=== PATIENT | male | born 1940 | race Caucasian/White ===

== ENCOUNTER → 2024-04-05 | Day surgery (SDC) | payer MEDICARE ==
[2024-04-02 13:16] LABS: BASOPHILS # (AUTO) 0.1 (0.0-0.1); BASOPHILS % 1.3 % (0.0-1.0); EOSINOPHILS # (AUTO) 0.6 (0.0-0.4); EOSINOPHILS % 7.2 % (0.0-6.0); HEMATOCRIT 40.9 % (38.2-49.6); HEMOGLOBIN 13.2 g/dL (14.0-18.0); LYMPHOCYTES # (AUTO) 2.2 (1.0-3.2); LYMPHOCYTES % 25.8 % (18.0-39.1); MEAN CORPUSCULAR HEMOGLOBIN 32.3 pg (28-32); MEAN CORPUSCULAR HGB CONC 32.3 g/dL (31-35); MONOCYTES # (AUTO) 0.9 (0.2-0.8); MONOCYTES % 10.6 % (4.4-11.3); NEUTROPHILS # (AUTO) 4.6 (2.1-6.9); NEUTROPHILS % 54.7 % (38.7-80.0); PLATELET COUNT 169 x10e3/uL (140-360); RED BLOOD COUNT 4.09 x10e6/uL (4.3-5.7); RED CELL DISTRIBUTION WIDTH 12.6 % (11.7-14.4); WHITE BLOOD COUNT 8.46 x10e3/uL (4.8-10.8)
[2024-04-02 13:32] LABS: ANION GAP 16.3 mmol/L (8-16); CALCIUM 9.9 mg/dL (8.4-10.2); CREATININE, SERUM 1.27 mg/dL (0.72-1.25); POTASSIUM 4.3 mmol/L (3.5-5.1)
[~2024-04-05] MED LIST: ASPIR 8181 MG PO; CIPRO500 MG PO; FENTANYL CITRATE/PF 100MCG/2 ML INJ ONE; FINASTERIDE5 MG PO; FLOMAX0.4 MG PO; IOPAMIDOL 610MG/1ML 300 MG/ML VIAL IV ONE; LIPITOR20 MG PO; PHENAZOPYRIDINE HCL 100 MG TAB ONE; PRESERVISION A1 EAC4 PO; SAW PALMETTO 41 EACH PO; SUGAMMADEX SODIUM 200 MG/2 ML VIAL IV ONE; TYLENOL WITH C1 EACH PO; ZESTRIL10 MG PO
[2024-04-05] MEDS: GENTAMICIN 80MG/NS 100 ML 200 ML IV ONE (05:58)
[2024-04-05] MEDS: CEFTRIAXONE 1 GM VIAL ONE (05:59)
[2024-04-05] MEDS: SODIUM CHLORIDE 0.9% 1000ML 1,000 ML ONE (05:59)
[2024-04-05 07:40] VITALS: PULSE 69; RESP 18; O2SAT 96
[2024-04-05] MEDS: ALBUTEROL/IPRATROPIUM 3 ML NEB ONE (07:41)
[2024-04-05 08:16] VITALS: TEMP 97.2
[2024-04-05] MEDS: PHENAZOPYRIDINE HCL 100 MG TAB ONE (08:38)
[2024-04-05 09:20] VITALS: BP 148/96; PULSE 62; RESP 16; O2SAT 100
== END | disposition home or self-care (01) ==
LOC: OR 06:40
PROVIDERS: ATTEND Urology
DX: C67.9 Malignant neoplasm of bladder, unspecified (principal); N35.919 Unspecified urethral stricture, male, unspecified site; N40.1 Benign prostatic hyperplasia with lower urinary tract symptoms; N13.8 Other obstructive and reflux uropathy; R39.14 Feeling of incomplete bladder emptying; R39.12 Poor urinary stream; R35.1 Nocturia; N50.0 Atrophy of testis; N32.89 Other specified disorders of bladder; I12.9 Hypertensive chronic kidney disease with stage 1 through stage 4 chronic kidney disease, or unspecified chronic kidney disease; N18.9 Chronic kidney disease, unspecified; E78.5 Hyperlipidemia, unspecified; I49.9 Cardiac arrhythmia, unspecified; R05.9 Cough, unspecified; Z91.041 Radiographic dye allergy status; Z91.013 Allergy to seafood; Z01.810 Encounter for preprocedural cardiovascular examination; Z01.812 Encounter for preprocedural laboratory examination; Z01.818 Encounter for other preprocedural examination; Z79.82 Long term (current) use of aspirin; Z79.899 Other long term (current) drug therapy
CPT/HCPCS: 36415; 52005; 52235; 71046; 74420; 80048; 85025; 88305; 93005; 94640; 94799; C1758; J0696; J1580; J3010; J7030; Q9967; 88307

== ENCOUNTER 2024-05-24 10:30 | Inpatient (IN) | payer MEDICARE ==
[2024-05-20 13:24] LABS: BASOPHILS # (AUTO) 0.1 (0.0-0.1); BASOPHILS % 1.3 % (0.0-1.0); EOSINOPHILS # (AUTO) 0.7 (0.0-0.4); EOSINOPHILS % 9.7 % (0.0-6.0); HEMATOCRIT 39.1 % (38.2-49.6); HEMOGLOBIN 12.6 g/dL (14.0-18.0); LYMPHOCYTES # (AUTO) 2.1 (1.0-3.2); LYMPHOCYTES % 27.3 % (18.0-39.1); MEAN CORPUSCULAR HEMOGLOBIN 32.3 pg (28-32); MEAN CORPUSCULAR HGB CONC 32.2 g/dL (31-35); MEAN CORPUSCULAR VOLUME 100.3 fL (81-99); MONOCYTES # (AUTO) 0.7 (0.2-0.8); NEUTROPHILS % 52.4 % (38.7-80.0); PLATELET COUNT 150 x10e3/uL (140-360); WHITE BLOOD COUNT 7.66 x10e3/uL (4.8-10.8)
[2024-05-20 13:48] LABS: CALCIUM 9.5 mg/dL (8.4-10.2); CREATININE, SERUM 1.03 mg/dL (0.72-1.25)
[~2024-05-24] VITALS: Ht 182.9 cm; Wt 85.3 kg
[~2024-05-24 10:30] MED LIST changes: +AUGMENTIN125 MG/51 PO; +BROMPHENIR-PSE118 ML PO; -FENTANYL CITRATE/PF 100MCG/2 ML INJ ONE; -IOPAMIDOL 610MG/1ML 300 MG/ML VIAL IV ONE; +METOPROLOL SUCC25 MG PO; -PHENAZOPYRIDINE HCL 100 MG TAB ONE; -SUGAMMADEX SODIUM 200 MG/2 ML VIAL IV ONE
[2024-05-24] MEDS: SODIUM CHLORIDE 0.9% 1000ML 1,000 ML ONE (11:01)
[2024-05-24] MEDS: GENTAMICIN 80MG/NS 100 ML 200 ML IV ONE (11:01)
[2024-05-24] MEDS: CEFTRIAXONE 1 GM VIAL ONE (11:02)
[2024-05-24] MEDS ORDERED: REFRESH PLUS1 EACH PO (11:06)
[2024-05-24] MEDS: ALBUTEROL/IPRATROPIUM 3 ML NEB ONE (12:07)
[2024-05-24] MEDS ORDERED: ONDANSETRON HCL INJ 2MG/ML 2ML 2 MG/ML VIAL ONE (12:14)
[2024-05-24] MEDS ORDERED: PROPOFOL IV EMULSION 10 MG/ML 20 ML VIAL ONE (12:14)
[2024-05-24] MEDS ORDERED: ROCURONIUM BROMIDE 1 ML IV ONE (12:14)
[2024-05-24] MEDS ORDERED: FENTANYL CITRATE/PF 100MCG/2 ML INJ ONE (12:14)
[2024-05-24] MEDS ORDERED: LIDOCAINE HCL 2% LOCAL INJ 5 ML SDV VIAL INJ ONE (12:14)
[2024-05-24] MEDS ORDERED: GLYCOPYRROLATE INJ 0.2 MG/ML VIAL ONE (13:16)
[2024-05-24] MEDS ORDERED: LABETALOL HCL 20 ML ONE (13:19)
[2024-05-24] MEDS ORDERED: EPHEDRINE SULFATE INJ 50 MG/ML VIAL ONE (13:48)
[2024-05-24] MEDS ORDERED: ATROPINE SULFATE 1 MG/ML VIAL ONE (13:55)
[2024-05-24] MEDS ORDERED: FUROSEMIDE INJ 10 MG/ML 4 ML VIAL ONE (14:19)
[2024-05-24] MEDS: FENTANYL CITRATE/PF 100MCG/2 ML INJ ONE (15:05)
[2024-05-24] MEDS ORDERED: PHENAZOPYRIDINE HCL 100 MG TAB PO PRN (15:45)
[2024-05-24] MEDS ORDERED: ACETAMINOPHEN 1000 MG/100 ML IV PRN (15:45)
[2024-05-24] MEDS ORDERED: DIPHENHYDRAMINE HCL 25 MG CAP PO PRN (15:45)
[2024-05-24 16:01] LABS: BASOPHILS # (AUTO) 0.1 (0.0-0.1); BASOPHILS % 0.8 % (0.0-1.0); EOSINOPHILS # (AUTO) 0.4 (0.0-0.4); EOSINOPHILS % 3.5 % (0.0-6.0); HEMATOCRIT 39.7 % (38.2-49.6); HEMOGLOBIN 12.4 g/dL (14.0-18.0); LYMPHOCYTES % 16.6 % (18.0-39.1); MEAN CORPUSCULAR HEMOGLOBIN 32.3 pg (28-32); MEAN CORPUSCULAR HGB CONC 31.2 g/dL (31-35); MEAN CORPUSCULAR VOLUME 103.4 fL (81-99); MONOCYTES # (AUTO) 0.8 (0.2-0.8); MONOCYTES % 6.9 % (4.4-11.3); NEUTROPHILS # (AUTO) 8.6 (2.1-6.9); NEUTROPHILS % 71.9 % (38.7-80.0); PLATELET COUNT 161 x10e3/uL (140-360); RED BLOOD COUNT 3.84 x10e6/uL (4.3-5.7); RED CELL DISTRIBUTION WIDTH 13.3 % (11.7-14.4); WHITE BLOOD COUNT 11.96 x10e3/uL (4.8-10.8)
[2024-05-24] MEDS: ONDANSETRON HCL INJ 2MG/ML 2ML 2 MG/ML VIAL ONE (16:06)
[2024-05-24 16:36] VITALS: BP 145/81; PULSE 70; RESP 16; TEMP 98.3; O2SAT 100
[2024-05-24 16:38] LABS: ANION GAP 15.1 mmol/L (8-16); CALCIUM 7.7 mg/dL (8.4-10.2); CREATININE, SERUM 0.86 mg/dL (0.72-1.25); POTASSIUM 4.1 mmol/L (3.5-5.1)
[2024-05-24 16:46] VITALS: BP 145/81; PULSE 70; RESP 16; TEMP 98.3; O2SAT 100
[2024-05-24 16:51] VITALS: BP 145/81; PULSE 70; RESP 16; TEMP 98.3; O2SAT 100
[2024-05-24] MEDS ORDERED: SENNA-S TABLET PO SCH (17:00)
[2024-05-24] MEDS: SODIUM CHLORIDE 0.9% 1000ML 1,000 ML IV SCH (17:46)
[2024-05-24 20:00] VITALS: BP 136/78; PULSE 70; RESP 18; TEMP 98.6; O2SAT 99
[2024-05-24] MEDS: SENNA-S TABLET PO SCH (20:56)
[2024-05-24] MEDS: ACETAMINOPHEN/CODEINE 300MG - 30MG TAB PO PRN (21:15)
[2024-05-24 23:10] VITALS: PULSE 69; RESP 18; O2SAT 98
[2024-05-25] VITALS (8 sets, daily range): BP systolic 129–156; BP diastolic 73–83; PULSE 68–88; RESP 16–20; TEMP 98.2–99.2; O2SAT 93–100
[2024-05-25 05:15] LABS: BASOPHILS # (AUTO) 0.1 (0.0-0.1); BASOPHILS % 0.9 % (0.0-1.0); EOSINOPHILS % 0.4 % (0.0-6.0); LYMPHOCYTES # (AUTO) 1.5 (1.0-3.2); LYMPHOCYTES % 13.9 % (18.0-39.1); MEAN CORPUSCULAR HEMOGLOBIN 31.7 pg (28-32); MEAN CORPUSCULAR HGB CONC 32.4 g/dL (31-35); MONOCYTES # (AUTO) 1.2 (0.2-0.8); MONOCYTES % 11.5 % (4.4-11.3); NEUTROPHILS # (AUTO) 7.7 (2.1-6.9); NEUTROPHILS % 72.9 % (38.7-80.0); PLATELET COUNT 149 x10e3/uL (140-360); RED BLOOD COUNT 3.47 x10e6/uL (4.3-5.7); RED CELL DISTRIBUTION WIDTH 13.6 % (11.7-14.4); WHITE BLOOD COUNT 10.54 x10e3/uL (4.8-10.8)
[2024-05-25 05:46] LABS: ANION GAP 13.4 mmol/L (8-16); CALCIUM 7.5 mg/dL (8.4-10.2); CREATININE, SERUM 0.8 mg/dL (0.72-1.25); POTASSIUM 4.4 mmol/L (3.5-5.1)
[2024-05-25] MEDS ORDERED: ACETAMINOPHEN 325 MG TAB PO PRN (09:15)
[2024-05-25] MEDS ORDERED: CALCIUM GLUC 1 G/50 ML NACL 50 ML IV ONE (10:30)
[2024-05-25] MEDS ORDERED: BENZONATATE 100 MG CAP PO PRN (10:30)
[2024-05-25] MEDS: CALCIUM CARBONATE 500 MG CHEWABLE TABS PO SCH (11:16)
[2024-05-25] MEDS: MAGNESIUM SULFATE 2GM/50ML 50 ML IV ONE (11:16)
[2024-05-25] MEDS: CALCIUM GLUC 1 G/50 ML NACL 50 ML IV ONE (11:53)
[2024-05-25] MEDS: ALBUTEROL/IPRATROPIUM 3 ML NEB NEB SCH (14:13)
[2024-05-25] MEDS: BENZONATATE 100 MG CAP PO SCH (14:26)
[2024-05-25] MEDS: ARTIFICIAL TEARS (OPTH) 15 ML BTL OU SCH (14:31)
[2024-05-25] MEDS: ATORVASTATIN 20 MG TAB PO SCH (20:39)
[2024-05-26] VITALS (8 sets, daily range): BP systolic 118–151; BP diastolic 62–79; PULSE 67–100; RESP 18; TEMP 98.4–98.9; O2SAT 94–98
[2024-05-26 05:10] LABS: BASOPHILS # (AUTO) 0.1 (0.0-0.1); BASOPHILS % 0.8 % (0.0-1.0); EOSINOPHILS # (AUTO) 0.5 (0.0-0.4); EOSINOPHILS % 5.4 % (0.0-6.0); HEMATOCRIT 33.9 % (38.2-49.6); HEMOGLOBIN 11.1 g/dL (14.0-18.0); LYMPHOCYTES # (AUTO) 1.7 (1.0-3.2); LYMPHOCYTES % 17.9 % (18.0-39.1); MEAN CORPUSCULAR HEMOGLOBIN 31.6 pg (28-32); MEAN CORPUSCULAR HGB CONC 32.7 g/dL (31-35); MEAN CORPUSCULAR VOLUME 96.6 fL (81-99); MONOCYTES % 10.6 % (4.4-11.3); NEUTROPHILS # (AUTO) 6.2 (2.1-6.9); NEUTROPHILS % 64.9 % (38.7-80.0); PLATELET COUNT 142 x10e3/uL (140-360); RED BLOOD COUNT 3.51 x10e6/uL (4.3-5.7); RED CELL DISTRIBUTION WIDTH 13.2 % (11.7-14.4); WHITE BLOOD COUNT 9.52 x10e3/uL (4.8-10.8)
[2024-05-26 05:37] LABS: ANION GAP 11.8 mmol/L (8-16); CALCIUM 8.3 mg/dL (8.4-10.2); CREATININE, SERUM 0.79 mg/dL (0.72-1.25); POTASSIUM 3.8 mmol/L (3.5-5.1)
[2024-05-26] MEDS: METOPROLOL SUCCINATE 25 MG TAB XL PO SCH (08:41)
[2024-05-26] MEDS: FINASTERIDE 5 MG TAB PO SCH (08:41)
[2024-05-26] MEDS: FUROSEMIDE INJ 10 MG/ML 4 ML VIAL IV ONE (08:41)
[2024-05-26] MEDS: TAMSULOSIN HCL 0.4 MG CAP PO SCH (08:42)
[2024-05-26] MEDS: ALBUTEROL/IPRATROPIUM 3 ML NEB NEB PRN (10:58)
[2024-05-27] VITALS (11 sets, daily range): BP systolic 109–164; BP diastolic 72–83; PULSE 66–88; RESP 17–20; TEMP 97.5–99.4; O2SAT 92–97
[2024-05-27 05:09] LABS: BASOPHILS # (AUTO) 0.1 (0.0-0.1); BASOPHILS % 0.5 % (0.0-1.0); EOSINOPHILS # (AUTO) 0.9 (0.0-0.4); EOSINOPHILS % 8.5 % (0.0-6.0); HEMATOCRIT 33.3 % (38.2-49.6); HEMOGLOBIN 11.1 g/dL (14.0-18.0); LYMPHOCYTES % 17.9 % (18.0-39.1); MEAN CORPUSCULAR HEMOGLOBIN 32.4 pg (28-32); MEAN CORPUSCULAR HGB CONC 33.3 g/dL (31-35); MEAN CORPUSCULAR VOLUME 97.1 fL (81-99); MONOCYTES # (AUTO) 1.1 (0.2-0.8); MONOCYTES % 10.1 % (4.4-11.3); NEUTROPHILS # (AUTO) 6.9 (2.1-6.9); NEUTROPHILS % 62.5 % (38.7-80.0); PLATELET COUNT 144 x10e3/uL (140-360); RED BLOOD COUNT 3.43 x10e6/uL (4.3-5.7); RED CELL DISTRIBUTION WIDTH 12.8 % (11.7-14.4); WHITE BLOOD COUNT 11.09 x10e3/uL (4.8-10.8)
[2024-05-27 05:27] LABS: ANION GAP 12.6 mmol/L (8-16); CALCIUM 8.7 mg/dL (8.4-10.2); CREATININE, SERUM 0.85 mg/dL (0.72-1.25); POTASSIUM 3.6 mmol/L (3.5-5.1)
[2024-05-27] MEDS: PANTOPRAZOLE SOD 40 MG TABEC PO SCH (08:55)
[2024-05-27] MEDS: DIPHENHYDRAMINE HCL INJ 50 MG/ML VIAL IV ONE (14:16)
[2024-05-27] MEDS ORDERED: IOPAMIDOL 370 MG/ML 100 ML INFUS..BTL INJ ONE (15:51)
[2024-05-27] MEDS ORDERED: SODIUM CHLORIDE 0.9% 500ML 500 ML ONE (15:52)
[2024-05-28] VITALS (9 sets, daily range): BP systolic 123–164; BP diastolic 68–87; PULSE 54–92; RESP 17–18; TEMP 97.8–99; O2SAT 93–97
[2024-05-28 05:35] LABS: BASOPHILS # (AUTO) 0.1 (0.0-0.1); BASOPHILS % 0.6 % (0.0-1.0); EOSINOPHILS # (AUTO) 1.1 (0.0-0.4); EOSINOPHILS % 11.1 % (0.0-6.0); HEMATOCRIT 30.2 % (38.2-49.6); HEMOGLOBIN 10.3 g/dL (14.0-18.0); LYMPHOCYTES # (AUTO) 1.9 (1.0-3.2); LYMPHOCYTES % 19.3 % (18.0-39.1); MEAN CORPUSCULAR HEMOGLOBIN 31.9 pg (28-32); MEAN CORPUSCULAR HGB CONC 34.1 g/dL (31-35); MEAN CORPUSCULAR VOLUME 93.5 fL (81-99); MONOCYTES # (AUTO) 0.9 (0.2-0.8); MONOCYTES % 9.6 % (4.4-11.3); NEUTROPHILS # (AUTO) 5.8 (2.1-6.9); PLATELET COUNT 150 x10e3/uL (140-360); RED BLOOD COUNT 3.23 x10e6/uL (4.3-5.7); RED CELL DISTRIBUTION WIDTH 12.8 % (11.7-14.4); WHITE BLOOD COUNT 9.78 x10e3/uL (4.8-10.8)
[2024-05-28 05:56] LABS: ANION GAP 12.4 mmol/L (8-16); CALCIUM 8.7 mg/dL (8.4-10.2); CREATININE, SERUM 0.87 mg/dL (0.72-1.25)
[2024-05-28 06:03] LABS: POTASSIUM 3.4 mmol/L (3.5-5.1)
[2024-05-28] MEDS ORDERED: LOSARTAN POTASS25 MG PO (09:39)
[2024-05-29] VITALS (7 sets, daily range): BP systolic 125–158; BP diastolic 76–86; PULSE 75–83; RESP 16–21; TEMP 97.4–99.1; O2SAT 93–99
[2024-05-29] MEDS: ONDANSETRON HCL INJ 2MG/ML 2ML 2 MG/ML VIAL IV PRN (07:29)
[2024-05-29] MEDS: CHOLESTYRAMINE 4 GM PACKET PO PRN (13:21)
[2024-05-30 00:24] VITALS: BP 122/68; PULSE 81; RESP 18; TEMP 98.4; O2SAT 94
[2024-05-30 04:00] VITALS: BP 143/91; PULSE 86; RESP 18; TEMP 97.6; O2SAT 94
[2024-05-30 08:28] VITALS: BP 143/91; PULSE 86; RESP 18; TEMP 97.6; O2SAT 94
[2024-05-30 08:36] VITALS: BP 138/85; PULSE 88; RESP 18; TEMP 97.6; O2SAT 94
[2024-05-30 08:40] VITALS: BP 138/85; PULSE 88
[2024-05-30] MEDS ORDERED: BACTRIM 400-801 EACH PO (10:38)
[2024-05-30] MEDS ORDERED: TESSALON PEARLS PO (10:40)
[2024-05-30] MEDS ORDERED: ZYRTEC10 M3 PO (10:41)
[2024-05-30] MEDS ORDERED: PANTOPRAZOLE SO40 MG PO (10:41)
[2024-05-30] MEDS ORDERED: KLOR-CON 1010 MEQ PO (10:42)
[2024-05-30] MEDS ORDERED: LASIX20 MG PO (10:42)
== END 2024-05-30 11:20 | disposition home or self-care (01) | DRG 713 ==
LOC: OR 10:30 → PACU V 15:09 → OBSVTOIN 15:31 → MED/SURG 16:44
PROVIDERS: ADMIT Internal Medicine; ATTEND Internal Medicine
PROC: BT141ZZ Fluoroscopy of Kidneys, Ureters and Bladder using Low Osmolar Contrast (ICD-10-PCS; 2024-05-24)
PROC: 0VB08ZZ Excision of Prostate, Via Natural or Artificial Opening Endoscopic (ICD-10-PCS; principal; 2024-05-24 12:45)
PROC: 0T7D8ZZ Dilation of Urethra, Via Natural or Artificial Opening Endoscopic (ICD-10-PCS; 2024-05-24 12:45)
DX: N40.1 Benign prostatic hyperplasia with lower urinary tract symptoms (principal); J90 Pleural effusion, not elsewhere classified; N13.8 Other obstructive and reflux uropathy; S37.29XA Other injury of bladder, initial encounter; D63.8 Anemia in other chronic diseases classified elsewhere; N41.9 Inflammatory disease of prostate, unspecified; I10 Essential (primary) hypertension; E78.5 Hyperlipidemia, unspecified; N32.81 Overactive bladder; R39.14 Feeling of incomplete bladder emptying; R05.3 Chronic cough; K21.9 Gastro-esophageal reflux disease without esophagitis; N35.919 Unspecified urethral stricture, male, unspecified site; R31.9 Hematuria, unspecified; N28.1 Cyst of kidney, acquired; Z85.51 Personal history of malignant neoplasm of bladder; Z87.440 Personal history of urinary (tract) infections; X58.XXXA Exposure to other specified factors, initial encounter; E66.9 Obesity, unspecified; Z68.25 Body mass index [BMI] 25.0-25.9, adult
CPT/HCPCS: 36415; 71250; 72194; 74176; 74420; 80048; 83735; 85025; 88305; 94640; 94799; 99252; C1758; J0461; J0696; J1200; J1580; J1940; J2003; J2405; J2470; J3475; J7030; J7040; Q9967

== ENCOUNTER 2024-06-16 13:01 | Inpatient (IN) | payer MEDICARE ==
[~2024-06-16] VITALS: Ht 182.9 cm; Wt 85.3 kg
[~2024-06-16 13:01] MED LIST changes: +BACTRIM 400-801 EACH PO; +KLOR-CON 1010 MEQ PO; +LASIX20 MG PO; +LOSARTAN POTASS25 MG PO; +PANTOPRAZOLE SO40 MG PO; +REFRESH PLUS1 EACH PO; +TESSALON PEARLS PO; +ZYRTEC10 M3 PO
[2024-06-16] MEDS ORDERED: SODIUM CHLORIDE 0.9% 1000ML 1,000 ML ONE (14:10)
[2024-06-16] MEDS: ACETAMINOPHEN 325 MG TAB PO ONE (14:14)
[2024-06-16 14:15] LABS: BASOPHILS % 0.3 % (0.0-1.0); EOSINOPHILS % 0.2 % (0.0-6.0); HEMATOCRIT 35.8 % (38.2-49.6); HEMOGLOBIN 11.3 g/dL (14.0-18.0); LYMPHOCYTES # (AUTO) 1.6 (1.0-3.2); LYMPHOCYTES % 12.8 % (18.0-39.1); MEAN CORPUSCULAR HEMOGLOBIN 32.1 pg (28-32); MEAN CORPUSCULAR HGB CONC 31.6 g/dL (31-35); MEAN CORPUSCULAR VOLUME 101.7 fL (81-99); MONOCYTES # (AUTO) 1.7 (0.2-0.8); MONOCYTES % 13.5 % (4.4-11.3); NEUTROPHILS % 72.7 % (38.7-80.0); PLATELET COUNT 202 x10e3/uL (140-360); RED BLOOD COUNT 3.52 x10e6/uL (4.3-5.7); RED CELL DISTRIBUTION WIDTH 12.9 % (11.7-14.4); WHITE BLOOD COUNT 12.38 x10e3/uL (4.8-10.8)
[2024-06-16] MEDS: SODIUM CHLORIDE 0.9% 1000ML 1,000 ML IV STA (14:18)
[2024-06-16 14:36] LABS: ALBUMIN/GLOBULIN RATIO 0.8 (0.8-2.0); ANION GAP 13.4 mmol/L (8-16); BILIRUBIN,TOTAL 1.2 mg/dL (0.2-1.2); CALCIUM 9.2 mg/dL (8.4-10.2); CREATININE, SERUM 1.1 mg/dL (0.72-1.25); MAGNESIUM 1.7 MG/DL (1.3-2.1); POTASSIUM 4.4 mmol/L (3.5-5.1); TOTAL PROTEIN 6.9 g/dL (6.5-8.1)
[2024-06-16 14:37] LABS: INR 1.07; PROTHROMBIN TIME 14.6 seconds (11.9-14.5)
[2024-06-16 14:38] LABS: CORONAVIRUS COVID-19 AG NEGATIVE (NEGATIVE); INFLUENZA A AG NEGATIVE (NEGATIVE); INFLUENZA B AG NEGATIVE (NEGATIVE); PARTIAL THROMBOPLASTIN TIME 29.2 seconds (23.8-35.5)
[2024-06-16 14:44] LABS: TROPONIN I 0.026 ng/mL (0-0.300)
[2024-06-16 14:47] LABS: BILIRUBIN,URINE NEGATIVE (NEGATIVE); CLARITY,URINE CLOUDY (CLEAR); COLOR,URINE YELLOW (YELLOW); GLUCOSE, URINE NEGATIVE (NEGATIVE); KETONES,URINE NEGATIVE (NEGATIVE); LEUKOCYTE ESTERASE ,URINE LARGE (NEGATIVE); NITRITE,URINE POSITIVE (NEGATIVE); PH,URINE 6.5 (5 - 7); PROTEIN,URINE DIPSTICK 2+ (NEGATIVE); URINE UROBILINOGEN 0.2 mg/dL (0.2 - 1)
[2024-06-16 14:56] LABS: BACTERIA,URINE MODERATE /HPF; WBC,URINE (MAN) >50 /HPF (0-5)
[2024-06-16 15:29] VITALS: PULSE 82; RESP 16; TEMP 99.8
[2024-06-16] MEDS: Vancomycin IV 1 GM in SODIUM CHLORIDE 0.9% 250ML 250 ML IV ONE (15:42)
[2024-06-16] MEDS ORDERED: ACETAMINOPHEN 325 MG TAB PO PRN (16:00)
[2024-06-16] MEDS ORDERED: ONDANSETRON HCL INJ 2MG/ML 2ML 2 MG/ML VIAL IV PRN (16:00)
[2024-06-16] MEDS ORDERED: IBUPROFEN 600 MG TAB PO PRN (16:00)
[2024-06-16] MEDS: SODIUM CHLORIDE 0.9% 1000ML 1,000 ML IV SCH (16:49)
[2024-06-16] MEDS: MEROPENEM 1 GM in SODIUM CHLORIDE 0.9% 100 ML IV SCH (17:47)
[2024-06-16] MEDS ORDERED: CEFUROXIME250 MG PO (17:53)
[2024-06-16 18:23] VITALS: BP 117/84; PULSE 80; RESP 16; TEMP 99.4; O2SAT 98
[2024-06-16 18:29] VITALS: BP 117/84; PULSE 80; RESP 16; TEMP 99.4; O2SAT 98
[2024-06-16 21:34] VITALS: BP 135/85; PULSE 101; RESP 20; TEMP 99; O2SAT 96
[2024-06-17] VITALS (9 sets, daily range): BP systolic 116–141; BP diastolic 61–85; PULSE 74–88; RESP 16–20; TEMP 98.1–99.9; O2SAT 93–99
[2024-06-17 06:27] LABS: BASOPHILS % 0.2 % (0.0-1.0); EOSINOPHILS # (AUTO) 0.1 (0.0-0.4); EOSINOPHILS % 0.7 % (0.0-6.0); HEMATOCRIT 30.3 % (38.2-49.6); LYMPHOCYTES # (AUTO) 1.5 (1.0-3.2); LYMPHOCYTES % 15.1 % (18.0-39.1); MEAN CORPUSCULAR HEMOGLOBIN 31.5 pg (28-32); MEAN CORPUSCULAR VOLUME 95.6 fL (81-99); MONOCYTES # (AUTO) 1.4 (0.2-0.8); MONOCYTES % 13.6 % (4.4-11.3); NEUTROPHILS % 69.9 % (38.7-80.0); PLATELET COUNT 174 x10e3/uL (140-360); RED BLOOD COUNT 3.17 x10e6/uL (4.3-5.7); RED CELL DISTRIBUTION WIDTH 12.7 % (11.7-14.4); WHITE BLOOD COUNT 10.01 x10e3/uL (4.8-10.8)
[2024-06-17 06:52] LABS: ALBUMIN 2.4 g/dL (3.5-5.0); ALBUMIN/GLOBULIN RATIO 0.7 (0.8-2.0); ANION GAP 11.1 mmol/L (8-16); BILIRUBIN,TOTAL 0.8 mg/dL (0.2-1.2); CALCIUM 8.5 mg/dL (8.4-10.2); CREATININE, SERUM 0.99 mg/dL (0.72-1.25); POTASSIUM 4.1 mmol/L (3.5-5.1); TOTAL PROTEIN 5.7 g/dL (6.5-8.1)
[2024-06-17] MEDS ORDERED: BENZONATATE 100 MG CAP PO PRN (10:00)
[2024-06-17] MEDS: BENZONATATE 100 MG CAP PO SCH (11:00)
[2024-06-17] MEDS: PANTOPRAZOLE SOD 40 MG TABEC PO SCH (11:29)
[2024-06-17] MEDS: LOSARTAN POTASSIUM 25 MG TAB PO SCH (11:31)
[2024-06-17] MEDS: FINASTERIDE 5 MG TAB PO SCH (11:31)
[2024-06-17] MEDS: METOPROLOL SUCCINATE 25 MG TAB XL PO SCH (11:31)
[2024-06-17] MEDS: TAMSULOSIN HCL 0.4 MG CAP PO SCH (16:12)
[2024-06-17] MEDS: ATORVASTATIN 20 MG TAB PO SCH (21:17)
[2024-06-18] VITALS (10 sets, daily range): BP systolic 109–140; BP diastolic 73–86; PULSE 67–86; RESP 16–20; TEMP 98.2–99.2; O2SAT 96–98
[2024-06-18 05:47] LABS: BASOPHILS # (AUTO) 0.1 (0.0-0.1); BASOPHILS % 0.6 % (0.0-1.0); EOSINOPHILS # (AUTO) 0.3 (0.0-0.4); EOSINOPHILS % 3.4 % (0.0-6.0); HEMATOCRIT 32.5 % (38.2-49.6); HEMOGLOBIN 10.2 g/dL (14.0-18.0); LYMPHOCYTES # (AUTO) 1.4 (1.0-3.2); MEAN CORPUSCULAR HEMOGLOBIN 31.6 pg (28-32); MEAN CORPUSCULAR HGB CONC 31.4 g/dL (31-35); MEAN CORPUSCULAR VOLUME 100.6 fL (81-99); MONOCYTES # (AUTO) 1.2 (0.2-0.8); NEUTROPHILS # (AUTO) 5.2 (2.1-6.9); NEUTROPHILS % 63.5 % (38.7-80.0); PLATELET COUNT 172 x10e3/uL (140-360); RED BLOOD COUNT 3.23 x10e6/uL (4.3-5.7); RED CELL DISTRIBUTION WIDTH 12.8 % (11.7-14.4); WHITE BLOOD COUNT 8.16 x10e3/uL (4.8-10.8)
[2024-06-18 06:11] LABS: ANION GAP 13.1 mmol/L (8-16); CALCIUM 8.5 mg/dL (8.4-10.2); CREATININE, SERUM 0.89 mg/dL (0.72-1.25); POTASSIUM 4.1 mmol/L (3.5-5.1)
[2024-06-19] VITALS (9 sets, daily range): BP systolic 98–136; BP diastolic 63–90; PULSE 57–78; RESP 17–18; TEMP 98.1–98.6; O2SAT 93–98
[2024-06-20] VITALS (11 sets, daily range): BP systolic 114–165; BP diastolic 74–87; PULSE 62–78; RESP 17–20; TEMP 97.1–98.8; O2SAT 96–100
[2024-06-20 05:52] LABS: BASOPHILS % 0.5 % (0.0-1.0); EOSINOPHILS # (AUTO) 0.6 (0.0-0.4); EOSINOPHILS % 7.4 % (0.0-6.0); HEMATOCRIT 32.9 % (38.2-49.6); HEMOGLOBIN 11.1 g/dL (14.0-18.0); LYMPHOCYTES % 26.7 % (18.0-39.1); MEAN CORPUSCULAR HEMOGLOBIN 32.5 pg (28-32); MEAN CORPUSCULAR HGB CONC 33.7 g/dL (31-35); MEAN CORPUSCULAR VOLUME 96.2 fL (81-99); MONOCYTES # (AUTO) 0.9 (0.2-0.8); MONOCYTES % 12.4 % (4.4-11.3); NEUTROPHILS # (AUTO) 3.9 (2.1-6.9); NEUTROPHILS % 52.5 % (38.7-80.0); PLATELET COUNT 208 x10e3/uL (140-360); RED BLOOD COUNT 3.42 x10e6/uL (4.3-5.7); RED CELL DISTRIBUTION WIDTH 12.8 % (11.7-14.4); WHITE BLOOD COUNT 7.42 x10e3/uL (4.8-10.8)
[2024-06-20 06:13] LABS: ANION GAP 13.9 mmol/L (8-16); CALCIUM 8.9 mg/dL (8.4-10.2); CREATININE, SERUM 0.86 mg/dL (0.72-1.25); POTASSIUM 3.9 mmol/L (3.5-5.1)
[2024-06-21 00:45] VITALS: BP 105/64; PULSE 64; RESP 17; TEMP 98.4; O2SAT 97
[2024-06-21 04:42] VITALS: BP 117/79; PULSE 61; RESP 16; TEMP 97.6; O2SAT 100
[2024-06-21 07:55] VITALS: PULSE 87; RESP 18; O2SAT 95
[2024-06-21 08:12] VITALS: BP 132/90; PULSE 72; RESP 18; TEMP 97.9; O2SAT 97
[2024-06-21 08:23] VITALS: BP 132/90; PULSE 72; RESP 18; TEMP 97.9; O2SAT 97
[2024-06-21 09:52] VITALS: BP 132/90; PULSE 72
== END 2024-06-21 10:40 | disposition home or self-care (01) | DRG 699 ==
LOC: ER 13:12 → ERHOLD 16:03 → MED/SURG3 17:10
PROVIDERS: ADMIT Internal Medicine; ATTEND Internal Medicine
DX: T83.511A Infection and inflammatory reaction due to indwelling urethral catheter, initial encounter (principal); D68.9 Coagulation defect, unspecified; Z16.12 Extended spectrum beta lactamase (ESBL) resistance; Z16.24 Resistance to multiple antibiotics; N39.0 Urinary tract infection, site not specified; E78.5 Hyperlipidemia, unspecified; I10 Essential (primary) hypertension; B96.1 Klebsiella pneumoniae [K. pneumoniae] as the cause of diseases classified elsewhere; C67.9 Malignant neoplasm of bladder, unspecified; D64.9 Anemia, unspecified; R53.81 Other malaise; R31.9 Hematuria, unspecified; Y84.6 Urinary catheterization as the cause of abnormal reaction of the patient, or of later complication, without mention of misadventure at the time of the procedure; Z11.52 Encounter for screening for COVID-19; Z90.79 Acquired absence of other genital organ(s); Z85.828 Personal history of other malignant neoplasm of skin; Z91.041 Radiographic dye allergy status; Z91.013 Allergy to seafood; Z87.891 Personal history of nicotine dependence
CPT/HCPCS: 36415; 71045; 80048; 80053; 81001; 82550; 83605; 83735; 84484; 85025; 85610; 85730; 87040; 87086; 87186; 94799; 99284; J2185; J7030; J7050

== ENCOUNTER → 2024-07-01 | Outpatient (REF) | payer MEDICARE ==
[~2024-07-01] MED LIST changes: +CEFUROXIME250 MG PO; +IOPAMIDOL 370 MG/ML 100 ML INFUS..BTL INJ ONE; +SODIUM CHLORIDE 0.9% 500ML 500 ML ONE
== END ==
LOC: CT 10:40
PROVIDERS: ATTEND Urology
DX: N40.1 Benign prostatic hyperplasia with lower urinary tract symptoms (principal); R39.14 Feeling of incomplete bladder emptying; R39.12 Poor urinary stream; N35.919 Unspecified urethral stricture, male, unspecified site
CPT/HCPCS: 72194; J7040; Q9967

== ENCOUNTER 2024-08-23 09:05 | Inpatient (IN) | payer MEDICARE ==
[~2024-08-23] VITALS: Ht 182.9 cm; Wt 90.7 kg
[~2024-08-23 09:05] MED LIST changes: -IOPAMIDOL 370 MG/ML 100 ML INFUS..BTL INJ ONE; -SODIUM CHLORIDE 0.9% 500ML 500 ML ONE
[2024-08-23 09:20] VITALS: TEMP 98.4
[2024-08-23 10:16] VITALS: PULSE 61; RESP 16
[2024-08-23 10:24] LABS: BASOPHILS # (AUTO) 0.1 (0.0-0.1); BASOPHILS % 0.9 % (0.0-1.0); EOSINOPHILS # (AUTO) 0.6 (0.0-0.4); EOSINOPHILS % 7.4 % (0.0-6.0); HEMATOCRIT 37.7 % (38.2-49.6); HEMOGLOBIN 12.3 g/dL (14.0-18.0); LYMPHOCYTES # (AUTO) 1.1 (1.0-3.2); LYMPHOCYTES % 14.6 % (18.0-39.1); MEAN CORPUSCULAR HEMOGLOBIN 31.6 pg (28-32); MEAN CORPUSCULAR HGB CONC 32.6 g/dL (31-35); MEAN CORPUSCULAR VOLUME 96.9 fL (81-99); MONOCYTES # (AUTO) 0.9 (0.2-0.8); MONOCYTES % 11.8 % (4.4-11.3); NEUTROPHILS # (AUTO) 4.9 (2.1-6.9); NEUTROPHILS % 64.9 % (38.7-80.0); PLATELET COUNT 167 x10e3/uL (140-360); RED BLOOD COUNT 3.89 x10e6/uL (4.3-5.7); RED CELL DISTRIBUTION WIDTH 13.4 % (11.7-14.4); WHITE BLOOD COUNT 7.48 x10e3/uL (4.8-10.8)
[2024-08-23 10:36] LABS: INR 1.06; PROTHROMBIN TIME 14.4 seconds (11.9-14.5)
[2024-08-23 10:37] LABS: PARTIAL THROMBOPLASTIN TIME 29.9 seconds (23.8-35.5)
[2024-08-23 10:45] LABS: ALBUMIN 3.4 g/dL (3.5-5.0); ALBUMIN/GLOBULIN RATIO 0.9 (0.8-2.0); ANION GAP 13.1 mmol/L (8-16); BILIRUBIN,TOTAL 0.8 mg/dL (0.2-1.2); CALCIUM 9.4 mg/dL (8.4-10.2); CREATININE, SERUM 1.13 mg/dL (0.72-1.25); POTASSIUM 4.1 mmol/L (3.5-5.1); TOTAL PROTEIN 7.1 g/dL (6.5-8.1)
[2024-08-23 10:49] LABS: BILIRUBIN,URINE NEGATIVE (NEGATIVE); CLARITY,URINE CLEAR (CLEAR); COLOR,URINE YELLOW (YELLOW); GLUCOSE, URINE NEGATIVE (NEGATIVE); KETONES,URINE NEGATIVE (NEGATIVE); LEUKOCYTE ESTERASE ,URINE TRACE (NEGATIVE); NITRITE,URINE NEGATIVE (NEGATIVE); PH,URINE 5.5 (5 - 7); PROTEIN,URINE DIPSTICK NEGATIVE (NEGATIVE); URINE UROBILINOGEN 0.2 mg/dL (0.2 - 1)
[2024-08-23 11:10] LABS: BACTERIA,URINE FEW /HPF; EPITHELIAL CELLS,URINE RARE /LPF; RBC,URINE 0-5 /HPF (0-5); TRANSITIONAL EPI CELLS,URINE RARE; WBC,URINE (MAN) >50 /HPF (0-5)
[2024-08-23] MEDS ORDERED: SODIUM CHLORIDE FLUSH 10 ML SYR INJ PRN (12:15)
[2024-08-23] MEDS ORDERED: ONDANSETRON HCL INJ 2MG/ML 2ML 2 MG/ML VIAL IV PRN (12:15)
[2024-08-23] MEDS ORDERED: LISINOPRIL2.5 MG PO (15:03)
[2024-08-23 15:10] VITALS: BP 146/82; PULSE 82; RESP 18; TEMP 97.9; O2SAT 98
[2024-08-23 20:00] VITALS: BP 138/81; PULSE 77; RESP 20; TEMP 98.5; O2SAT 100
[2024-08-24] VITALS (9 sets, daily range): BP systolic 92–125; BP diastolic 61–87; PULSE 64–87; RESP 17–20; TEMP 98–99; O2SAT 93–98
[2024-08-24 06:40] LABS: BASOPHILS # (AUTO) 0.1 (0.0-0.1); BASOPHILS % 0.7 % (0.0-1.0); EOSINOPHILS # (AUTO) 0.7 (0.0-0.4); EOSINOPHILS % 8.8 % (0.0-6.0); HEMATOCRIT 34.3 % (38.2-49.6); HEMOGLOBIN 11.4 g/dL (14.0-18.0); LYMPHOCYTES # (AUTO) 1.5 (1.0-3.2); LYMPHOCYTES % 19.7 % (18.0-39.1); MEAN CORPUSCULAR HEMOGLOBIN 31.5 pg (28-32); MEAN CORPUSCULAR HGB CONC 33.2 g/dL (31-35); MEAN CORPUSCULAR VOLUME 94.8 fL (81-99); MONOCYTES # (AUTO) 1.1 (0.2-0.8); MONOCYTES % 14.1 % (4.4-11.3); NEUTROPHILS # (AUTO) 4.2 (2.1-6.9); NEUTROPHILS % 56.3 % (38.7-80.0); PLATELET COUNT 163 x10e3/uL (140-360); RED BLOOD COUNT 3.62 x10e6/uL (4.3-5.7); RED CELL DISTRIBUTION WIDTH 13.4 % (11.7-14.4); WHITE BLOOD COUNT 7.51 x10e3/uL (4.8-10.8)
[2024-08-24 07:13] LABS: ALBUMIN 2.8 g/dL (3.5-5.0); ALBUMIN/GLOBULIN RATIO 0.9 (0.8-2.0); ANION GAP 12.9 mmol/L (8-16); BILIRUBIN,TOTAL 0.5 mg/dL (0.2-1.2); CALCIUM 8.6 mg/dL (8.4-10.2); CREATININE, SERUM 1.2 mg/dL (0.72-1.25); POTASSIUM 3.9 mmol/L (3.5-5.1); TOTAL PROTEIN 5.9 g/dL (6.5-8.1)
[2024-08-24] MEDS ORDERED: ALBUTEROL/IPRATROPIUM 3 ML NEB NEB PRN (08:30)
[2024-08-24] MEDS ORDERED: ACETAMINOPHEN 325 MG TAB PO PRN (08:30)
[2024-08-24] MEDS ORDERED: MELATONIN 3 MG TAB PO PRN (08:30)
[2024-08-24] MEDS ORDERED: METOPROLOL TARTRATE INJ 1 MG/ML VIAL IV PRN (08:30)
[2024-08-24] MEDS: METOPROLOL SUCCINATE 25 MG TAB XL PO SCH (09:51)
[2024-08-24] MEDS: TAMSULOSIN HCL 0.4 MG CAP PO SCH (09:51)
[2024-08-24] MEDS: FINASTERIDE 5 MG TAB PO SCH (09:51)
[2024-08-24] MEDS: SODIUM CHLORIDE 0.9% 1000ML 1,000 ML IV SCH (09:52)
[2024-08-24] MEDS: LOSARTAN POTASSIUM 25 MG TAB PO SCH (09:52)
[2024-08-24] MEDS: ENOXAPARIN SOD INJ 40 MG/0.4 ML SYR SC SCH (17:41)
[2024-08-24] MEDS: ATORVASTATIN 20 MG TAB PO SCH (21:29)
[2024-08-25] VITALS (10 sets, daily range): BP systolic 128–148; BP diastolic 74–81; PULSE 58–73; RESP 17–18; TEMP 97.8–98.7; O2SAT 96–100
[2024-08-25 06:21] LABS: BASOPHILS # (AUTO) 0.1 (0.0-0.1); BASOPHILS % 0.9 % (0.0-1.0); EOSINOPHILS # (AUTO) 0.6 (0.0-0.4); EOSINOPHILS % 9.4 % (0.0-6.0); HEMATOCRIT 35.8 % (38.2-49.6); HEMOGLOBIN 11.9 g/dL (14.0-18.0); LYMPHOCYTES # (AUTO) 1.6 (1.0-3.2); LYMPHOCYTES % 24.2 % (18.0-39.1); MEAN CORPUSCULAR HEMOGLOBIN 31.5 pg (28-32); MEAN CORPUSCULAR HGB CONC 33.2 g/dL (31-35); MEAN CORPUSCULAR VOLUME 94.7 fL (81-99); MONOCYTES # (AUTO) 0.8 (0.2-0.8); MONOCYTES % 11.7 % (4.4-11.3); NEUTROPHILS # (AUTO) 3.5 (2.1-6.9); NEUTROPHILS % 53.5 % (38.7-80.0); PLATELET COUNT 168 x10e3/uL (140-360); RED BLOOD COUNT 3.78 x10e6/uL (4.3-5.7); RED CELL DISTRIBUTION WIDTH 13.6 % (11.7-14.4); WHITE BLOOD COUNT 6.52 x10e3/uL (4.8-10.8)
[2024-08-25 06:53] LABS: ANION GAP 12.9 mmol/L (8-16); CALCIUM 8.8 mg/dL (8.4-10.2); CREATININE, SERUM 1.02 mg/dL (0.72-1.25); POTASSIUM 3.9 mmol/L (3.5-5.1)
[2024-08-26] VITALS (9 sets, daily range): BP systolic 130–153; BP diastolic 77–90; PULSE 58–72; RESP 18–21; TEMP 97.6–98.4; O2SAT 96–98
[2024-08-26 06:26] LABS: BASOPHILS # (AUTO) 0.1 (0.0-0.1); EOSINOPHILS # (AUTO) 0.6 (0.0-0.4); EOSINOPHILS % 8.8 % (0.0-6.0); HEMATOCRIT 34.1 % (38.2-49.6); HEMOGLOBIN 11.5 g/dL (14.0-18.0); LYMPHOCYTES # (AUTO) 1.7 (1.0-3.2); MEAN CORPUSCULAR HEMOGLOBIN 31.7 pg (28-32); MEAN CORPUSCULAR HGB CONC 33.7 g/dL (31-35); MEAN CORPUSCULAR VOLUME 93.9 fL (81-99); MONOCYTES # (AUTO) 0.7 (0.2-0.8); MONOCYTES % 10.5 % (4.4-11.3); NEUTROPHILS # (AUTO) 3.7 (2.1-6.9); NEUTROPHILS % 54.4 % (38.7-80.0); PLATELET COUNT 166 x10e3/uL (140-360); RED BLOOD COUNT 3.63 x10e6/uL (4.3-5.7); RED CELL DISTRIBUTION WIDTH 13.5 % (11.7-14.4); WHITE BLOOD COUNT 6.85 x10e3/uL (4.8-10.8)
[2024-08-26 07:04] LABS: CALCIUM 8.6 mg/dL (8.4-10.2); CREATININE, SERUM 0.98 mg/dL (0.72-1.25)
[2024-08-27] VITALS (8 sets, daily range): BP systolic 124–157; BP diastolic 70–92; PULSE 55–74; RESP 18–21; TEMP 98–98.5; O2SAT 95–100
== END 2024-08-27 18:28 | disposition home or self-care (01) | DRG 690 ==
LOC: ER 09:25 → ERHOLD 12:12 → MED/SURG3 13:25
PROVIDERS: ADMIT Internal Medicine; ATTEND Internal Medicine
DX: N39.0 Urinary tract infection, site not specified (principal); E87.1 Hypo-osmolality and hyponatremia; Z16.12 Extended spectrum beta lactamase (ESBL) resistance; D68.9 Coagulation defect, unspecified; Z16.24 Resistance to multiple antibiotics; B96.1 Klebsiella pneumoniae [K. pneumoniae] as the cause of diseases classified elsewhere; E86.0 Dehydration; N40.1 Benign prostatic hyperplasia with lower urinary tract symptoms; R33.8 Other retention of urine; D64.9 Anemia, unspecified; N28.1 Cyst of kidney, acquired; E78.5 Hyperlipidemia, unspecified; L40.9 Psoriasis, unspecified; Z87.891 Personal history of nicotine dependence; R53.81 Other malaise; I48.91 Unspecified atrial fibrillation; Z95.818 Presence of other cardiac implants and grafts; Z85.51 Personal history of malignant neoplasm of bladder; Z85.828 Personal history of other malignant neoplasm of skin; Z79.899 Other long term (current) drug therapy
CPT/HCPCS: 36415; 80048; 80053; 81001; 83605; 85025; 85610; 85730; 87040; 87086; 93005; 94799; 99284; J1650; J2543; J7030

== ENCOUNTER 2025-04-07 11:40 | Emergency (ER) | payer MEDICARE ==
[~2025-04-07] VITALS: Ht 182.9 cm; Wt 81.6 kg
[~2025-04-07 11:40] MED LIST changes: +LISINOPRIL2.5 MG PO
[2025-04-07 13:24] VITALS: TEMP 98.4
[2025-04-07 13:47] VITALS: PULSE 68; RESP 18; O2SAT 94
[2025-04-07] MEDS: ALBUTEROL/IPRATROPIUM 3 ML NEB NEB ONE (13:47)
[2025-04-07] MEDS: PREDNISONE 20 MG TAB PO ONE (13:59)
[2025-04-07] MEDS ORDERED: AZITHROMYCIN250 MG PO (15:33)
[2025-04-07] MEDS ORDERED: PREDNISONE50 MG PO (15:33)
[2025-04-07 16:05] VITALS: PULSE 75; RESP 18
[2025-04-07 16:06] VITALS: BP 152/87; PULSE 75; RESP 18; O2SAT 96
== END 2025-04-07 16:11 | disposition home or self-care (01) ==
LOC: ER 13:32
DX: R05.9 Cough, unspecified (principal); J06.9 Acute upper respiratory infection, unspecified; R91.8 Other nonspecific abnormal finding of lung field; I10 Essential (primary) hypertension; E78.5 Hyperlipidemia, unspecified; Z85.51 Personal history of malignant neoplasm of bladder; Z85.828 Personal history of other malignant neoplasm of skin
CPT/HCPCS: 71250; 94640; 94799; 99282; J7512